=== PATIENT | female | born 1950 | race Two or more races ===

== ENCOUNTER 2020-04-14 06:23 | Day surgery (SDC) | payer OTHER ==
[~2020-04-14 06:23] MED LIST: DAFLONEX-XL 11300 MG PO; GLIPIZIDE XL10 MG PO; LANTUS SOL100 UNIT/1; ROCALTROL0.25 MCG PO; SIMVASTATIN40 MG PO; SINGULAIR10 MG PO; ZESTRIL10 M1 PO
[2020-04-14] MEDS ORDERED: ULTRACET PO (08:37)
[2020-04-14] MEDS ORDERED: DUI500 PO (08:37)
== END 2020-04-14 12:27 | disposition home or self-care (01) ==
LOC: CIR.AMB 06:23
PROVIDERS: ATTEND Orthopaedic Surgery Sports Medicine
DX: M23.341 Other meniscus derangements, anterior horn of lateral meniscus, right knee (principal); M65.861 Other synovitis and tenosynovitis, right lower leg